=== PATIENT | female | born 1990 | race Hispanic/Latino ===

== ENCOUNTER → 2023-05-26 08:49 | Outpatient (CLI) | payer OTHER, SELFPAY ==
[2023-05-26 09:31] LABS: Add Manual Diff / Slide Review NO; Basophils Absolute Auto 0 /uL (0-100); Basophils Percent Auto 0.8 % (0-2); Eosinophils Absolute Auto 100 /uL (0-450); Eosinophils Percent Auto 3.7 % (2-4); Hematocrit 34.4 % (36-46); Hemoglobin 12.2 g/dL (12.0-16.0); Lymphocytes Absolute Auto 900 /uL (1100-4500); Lymphocytes Percent Auto 24.7 % (25-40); Mean Corpuscular HGB Conc 35.5 % (30-36); Mean Corpuscular Hemoglobin 30.9 PG (26-34); Mean Corpuscular Volume 87.1 fL (80-100); Monocytes Absolute Auto 300 /uL (0-900); Monocytes Percent Auto 8.4 % (3-14); Neutrophils Absolute Auto 2300 /uL (1500-7000); Neutrophils Percent Auto 62.4 % (50-75); Platelet Count 218 X10^3/uL (150-400); Red Blood Cell Count 3.95 X10^6/uL (4.0-5.2); Red Cell Distribution Width 12.3 % (11.6-14.8); White Blood Cell Count 3.7 X10^3/uL (4.5-11.0)
[2023-05-26 10:09] LABS: Alanine Aminotransferase 38 IU/L (<35); Albumin 4.6 g/dL (3.5-5.0); Albumin Globulin Ratio 1.3 (1.0-2.8); Alkaline Phosphatase 69 U/L (38-126); Aspartate Aminotransferase 36 IU/L (14-36); BUN Creatinine Ratio 24.6 (6-22); Bilirubin Total 2.3 mg/dL (0.2-1.3); Blood Urea Nitrogen 15 mg/dL (7-17); Calcium 9.3 mg/dL (8.4-10.2); Carbon Dioxide 27 mmol/L (22-32); Chloride 106 mmol/L (98-107); Cholesterol 181 mg/dL (140-199); Estimated Glomerular Filt Rate > 60 mL/min (>60); Globulin 3.5 g/dL (1.7-4.1); Glucose 89 mg/dL (70-100); HDL Cholesterol 65 mg/dL (40-60); HEMOLYSIS < 15 (0-50); LDL Cholesterol Calculated 105 mg/dL (<100); Potassium 4.3 mmol/L (3.4-5.1); Sodium 140 mmol/L (137-145); Total Protein 8.1 g/dL (6.3-8.2); Triglycerides 54 mg/dL (35-150)
[2023-05-26 16:50] LABS: HIV 1 & 2 Ab/Ag 4th Gen Combo NEGATIVE (NEGATIVE); Hep C Virus Ab w/Reflex Quant NEGATIVE s/c (NEGATIVE)
[2023-05-27 07:46] LABS: RPR Screen Non Reactive (Non Reactive)
== END ==
PROVIDERS: PCP Family Medicine; Referring Provider Family Medicine; Visit Provider Family Medicine
DX: D64.9 Anemia, unspecified (principal); R21 Rash and other nonspecific skin eruption; Z11.59 Encounter for screening for other viral diseases; Z13.220 Encounter for screening for lipoid disorders; Z11.3 Encounter for screening for infections with a predominantly sexual mode of transmission; Z11.4 Encounter for screening for human immunodeficiency virus [HIV]; N13.70 Vesicoureteral-reflux, unspecified
CPT/HCPCS: 36415; 80053; 80061; 85025; 86592; 86803; 87389

== ENCOUNTER → 2023-06-08 09:51 | Outpatient (CLI) | payer OTHER, SELFPAY ==
--- NOTE | 2023-06-08 09:52 | DI.US.S_ITS ---
PROCEDURE: US RENAL COMPLETE INDICATIONS: Eval for scarring s/p ureteral reimplantation TECHNIQUE: Real-time scanning was performed of the kidneys and bladder, with image documentation. COMPARISON: None. FINDINGS: Kidneys: Kidneys are normal in size. Right kidney measures < 9.0 cm long; left kidney measures 12.6 cm long. Mild right hydronephrosis is seen. No hydronephrosis seen on left. No renal stone seen. Renal cortical echotexture is normal. No hydronephrosis or nephrolithiasis. No suspicious solid mass lesions. Bladder: Pre-void bladder volume is 85 mL. Post-void residual is 0 mL. Pre-void images demonstrate no intraluminal masses or stones. On pre-void images, bilateral ureteral jets are noted with color Doppler interrogation. (Of note, ureteral jets may not be detectable in up to 25% of cases due to insufficient differences in specific gravity between ureteral and bladder urine). Miscellaneous: No free pelvic fluid. IMPRESSION: Mild right hydronephrosis Bilateral ureteral jets are present Dictated by: Alin Mandel M.D. on 06/08/2023 at 10:37 Approved by: Alin Mandel M.D. on 06/08/2023 at 11:06
== END ==
LOC: US 09:51
PROVIDERS: PCP Family Medicine; Referring Provider Family Medicine; Visit Provider Family Medicine
DX: N13.30 Unspecified hydronephrosis (principal); N13.70 Vesicoureteral-reflux, unspecified
CPT/HCPCS: 76770

== ENCOUNTER → 2023-06-16 14:52 | Outpatient (CLI) | payer OTHER, SELFPAY | PROVIDERS: PCP Family Medicine; Referring Provider Family Medicine; Visit Provider Family Medicine | DX: R00.2 Palpitations (principal) | CPT/HCPCS: 93246 ==

== ENCOUNTER → 2023-06-17 11:41 | Outpatient (CLI) | payer OTHER, SELFPAY ==
--- NOTE | 2023-06-17 11:44 | DI.RAD.S_ITS ---
PROCEDURE: XR KNEE RT 3V INDICATIONS: Right Knee Pain TECHNIQUE: 3 views of the knee were acquired. COMPARISON: None. FINDINGS: Bones: No fractures or dislocations. No suspicious bony lesions. Soft tissues: No joint effusion. No suspicious soft tissue calcifications. IMPRESSION: No acute right knee fracture or dislocation. No significant joint effusion. Dictated by: Nikko Rodgers M.D. on 06/17/2023 at 14:21 Approved by: Nikko Rodgers M.D. on 06/17/2023 at 14:24
== END ==
PROVIDERS: PCP Family Medicine; Referring Provider Family Medicine; Visit Provider Family Medicine
DX: M25.561 Pain in right knee (principal)
CPT/HCPCS: 73562

== ENCOUNTER 2024-05-09 11:55 | Emergency (ER) | payer OTHER, SELFPAY ==
[2024-05-09 12:02] VITALS: BP 108/68; PULSE 79; RESP 14; TEMP 36.8; O2SAT 99; BMI 21.9
--- NOTE | 2024-05-09 12:02 | EKG_ITS ---
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
--- NOTE | 2024-05-09 12:02 | DI.RAD.S_ITS ---
PROCEDURE: XR CHEST 1V INDICATIONS: chest pain TECHNIQUE: One view of the chest was acquired. COMPARISON: None. FINDINGS: Surgical changes and devices: None. Lungs and pleura: Lungs are clear. No pleural effusions or pneumothorax. Mediastinum: Mediastinal contours appear normal. Heart size is normal. Bones and chest wall: No suspicious bony lesions. Overlying soft tissues appear unremarkable. IMPRESSION: No acute cardiopulmonary abnormality is seen. Dictated by: Luca Ogden M.D. on 05/09/2024 at 12:47 Approved by: Luca Ogden M.D. on 05/09/2024 at 12:47
[2024-05-09 12:20] LABS: Add Manual Diff / Slide Review NO; Basophils Absolute Auto 0 /uL (0-100); Basophils Percent Auto 0.6 % (0-2); Eosinophils Absolute Auto 300 /uL (0-450); Eosinophils Percent Auto 4.1 % (2-4); Hematocrit 36.5 % (36-46); Hemoglobin 12.7 g/dL (12.0-16.0); Lymphocytes Absolute Auto 1100 /uL (1100-4500); Lymphocytes Percent Auto 14.4 % (25-40); Mean Corpuscular HGB Conc 34.8 % (30-36); Mean Corpuscular Volume 86.4 fL (80-100); Monocytes Absolute Auto 600 /uL (0-900); Monocytes Percent Auto 7.5 % (3-14); Neutrophils Absolute Auto 5700 /uL (1500-7000); Neutrophils Percent Auto 73.4 % (50-75); Platelet Count 335 X10^3/uL (150-400); Red Blood Cell Count 4.22 X10^6/uL (4.0-5.2); Red Cell Distribution Width 11.8 % (11.6-14.8); White Blood Cell Count 7.8 X10^3/uL (4.5-11.0)
[2024-05-09 12:22] LABS: INR 1.2 (0.9-1.3); Prothrombin Time 13.2 SECONDS (9.4-12.5)
[2024-05-09 12:24] LABS: PTT Partial Thromboplastin Tim 34 SECONDS (25.1-36.5)
[2024-05-09 12:26] LABS: Alanine Aminotransferase 26 IU/L (<35); Albumin Globulin Ratio 1.5 (1.0-2.8); Alkaline Phosphatase 62 U/L (38-126); Aspartate Aminotransferase 27 IU/L (14-36); BUN Creatinine Ratio 19.4 (6-22); Bilirubin Total 1.8 mg/dL (0.2-1.3); Blood Urea Nitrogen 14 mg/dL (7-17); Calcium 9.6 mg/dL (8.4-10.2); Carbon Dioxide 23 mmol/L (22-32); Chloride 106 mmol/L (98-107); Creatine Kinase 72 U/L (30-135); Estimated Glomerular Filt Rate > 60 mL/min (>60); Globulin 3.4 g/dL (1.7-4.1); Glucose 96 mg/dL (70-100); HEMOLYSIS < 15 (0-50); Lipase 118 U/L (23-300); Magnesium 1.9 mg/dL (1.6-2.3); Potassium 4.1 mmol/L (3.4-5.1); Sodium 139 mmol/L (137-145); Total Protein 8.4 g/dL (6.3-8.2)
[2024-05-09 12:38] LABS: NT-proBNP (BNP-Adult 18+) < 20 pg/mL (<125); Troponin I < 0.012 ng/mL (0.01-0.034)
[2024-05-09] MEDS: ASPIRIN 81 MG CHEW TAB 324 MG PO (13:59)
--- NOTE | 2024-05-09 14:10 | ED_ITS ---
HPI - Chest Pain <Seble Mondragon PA-C - Last Filed: 05/09/24 20:11> General Chief Complaint: Chest Pain Stated Complaint: frequent irregular heartbeat, pressure in chest Time Seen by Provider: 05/09/24 14:09 Mode of arrival: Ambulatory History of Present Illness HPI narrative: Ms. Jacobson is a pleasant 34-year-old female with a past medical history of vesicoureteric reflux, appendectomy, palpitations who presents to the emergency department for worsening palpitations associated with chest pain today. Patient reports that she experiences episode of chest pain associated with palpitations approximately 2 times a day for the last multiple months. Reports having a Holter monitor in the past that showed occasional ?extra beats? but was advised there was nothing of concern. When she woke up this morning she states that her palpitations and pain was constant which is not normal for her. States that she feels a palpitation approximately every 30 seconds currently, sometimes it feels like it is taking her breath away. She denies shortness of breath at rest, hemoptysis, hormone use, cough, abdominal pain, nausea, vomiting, diarrhea, dysuria, hematuria. Related Data Previous Rx's Medication Instructions Recorded norethindrone acetate 1 mg-ethinyl 1 tab PO DAILY #63 tabs 05/11/24 estradiol 20 mcg tablet (Loestrin) Allergies Allergy/AdvReac Type Severity Reaction Status Date / Time No Known Drug Allergies Allergy Verified 05/11/24 10:26 Review of Systems <Seble Mondragon PA-C - Last Filed: 05/09/24 20:11> Review of Systems ROS Unobtainable: All systems reviewed & are unremarkable except as noted in HPI and below Patient History <Seble Mondragon PA-C - Last Filed: 05/09/24 20:11> Medical History Skin rash (~2022) Dandruff (~2022) Acne Depression (~2020) Anxiety (~2020) Anemia Wears glasses (~2018) Recurrent sinusitis Ovarian cyst (~2022) Herpes (~2022) Endometriosis (~2022) VUR (vesicoureteric reflux) (~1992) Surgical History S/P ureteral reimplantation (~1992) Anesthesia History of section (~2014) History of appendectomy (~1993) Family History Father Hyperlipidemia Mother History of heart disease Hyperlipidemia Brother Hyperlipidemia Sister Mental health problem Grandfather Breast cancer Liver cancer Grandmother Diabetes mellitus History of heart disease Hyperlipidemia Stroke Blindness Grandmother Arthritis Hyperlipidemia Stroke Son VUR (vesicoureteric reflux) Social History Smoking Status: Never smoker Smoking Status: Never smoker Exam <Seble Mondragon PA-C - Last Filed: 05/09/24 20:11> Narrative Exam Narrative: GENERAL: 34 year old patient appears stated age. Well-developed patient, in no acute distress. HEAD: Atraumatic. Normocephalic. EYES: No scleral icterus. No injection or drainage. NECK: Trachea midline. Cervical ROM intact. CARDIOVASCULAR: Regular rate and rhythm. On certification technician, there appears to be occasional PVCs every 30 seconds to 1 minute. RESPIRATORY: ?Nonlabored respirations. ?Speaking in clear, full sentences. ?Clear to auscultation. Breath sounds equal bilaterally. No wheezes, rales, or rhonchi. ? GASTROINTESTINAL: Abdomen soft, non-tender, nondistended. EXTREMITIES: No edema or joint tenderness. BACK: Nontender without deformity or crepitance. No flank tenderness. NEURO: AOx3. ?Clear speech. ?Moves all 4 extremities appropriately. SKIN: No rash or erythema of visible areas Initial Vital Signs Initial Vital Signs: Vital Signs Temperature 98.3 F 05/09/24 12:02 Pulse Rate 79 05/09/24 12:02 Respiratory Rate 14 05/09/24 12:02 Blood Pressure 108/68 05/09/24 12:02 Pulse Oximetry 99 05/09/24 12:02 Oxygen Delivery Method Room Air 05/09/24 12:02 <Vinicius Baer MD - Last Filed: 05/11/24 12:43> Initial Vital Signs Initial Vital Signs: Vital Signs Temperature 98.3 F 05/09/24 12:02 Pulse Rate 79 05/09/24 12:02 Respiratory Rate 14 05/09/24 12:02 Blood Pressure 108/68 05/09/24 12:02 Pulse Oximetry 99 05/09/24 12:02 Oxygen Delivery Method Room Air 05/09/24 12:02 Scores <Seble Mondragon PA-C - Last Filed: 05/09/24 20:11> HEART Score Heart Score history: Slightly Suspicious Heart Score EKG: Normal Heart Score Age: < 45 years old Heart Score risk factors: No known risk factors Heart Score troponin: < or = to normal limit Heart Score Total: 0 PERC Score Age greater than or equal to 50 years: No Heart rate greater than or equal to 100 bpm: No Room Air O2 Sat less than 95%: No Unilateral leg swelling: No Recent trauma or surgery: No Hemoptysis: No Prior PE or DVT: No Hormone Use: No Total PERC Score: 0 <Vinicius Baer MD - Last Filed: 05/11/24 12:43> HEART Score Heart Score Total: 0 PERC Score Total PERC Score: 0 Course <Seble Mondragon PA-C - Last Filed: 05/09/24 20:11> Orders Ordered: Discontinued Medications Aspirin (Aspirin 81 Mg Chew Tab) 324 mg PO NOW ONE Stop: 05/09/24 12:03 Last Admin: 05/09/24 13:59 Dose: 324 mg Documented By: RENY Sodium Chloride (Normal Saline 0.9%) 1,000 mls @ 1,000 mls/hr IV BOLUS ONE Stop: 05/09/24 15:23 Last Infusion: 05/09/24 16:00 Dose: Infused Documented By: Admin: 05/09/24 14:41 Dose: 1,000 mls/hr Documented By: MICHELLE Vital Signs Vital signs: Vital Signs - 8 hr 05/09/24 15:00 05/09/24 15:30 05/09/24 16:00 Pulse Rate 78 75 67 Respiratory Rate 13 17 17 Blood Pressure 99/63 112/56 L 110/61 Pulse Oximetry 100 99 100 Oxygen Delivery Method Room Air Room Air 05/09/24 16:30 Pulse Rate 64 Respiratory Rate 15 Blood Pressure 98/65 Pulse Oximetry 100 Oxygen Delivery Method Room Air <Vinicius Baer MD - Last Filed: 05/11/24 12:43> Orders Ordered: Discontinued Medications Aspirin (Aspirin 81 Mg Chew Tab) 324 mg PO NOW ONE Stop: 05/09/24 12:03 Last Admin: 05/09/24 13:59 Dose: 324 mg Documented By: RENY Sodium Chloride (Normal Saline 0.9%) 1,000 mls @ 1,000 mls/hr IV BOLUS ONE Stop: 05/09/24 15:23 Last Infusion: 05/09/24 16:00 Dose: Infused Documented By: Admin: 05/09/24 14:41 Dose: 1,000 mls/hr Documented By: MICHELLE Vital Signs Vital signs: Vital Signs - 8 hr 05/09/24 15:00 05/09/24 15:30 05/09/24 16:00 Pulse Rate 78 75 67 Respiratory Rate 13 17 17 Blood Pressure 99/63 112/56 L 110/61 Pulse Oximetry 100 99 100 Oxygen Delivery Method Room Air Room Air 05/09/24 16:30 Pulse Rate 64 Respiratory Rate 15 Blood Pressure 98/65 Pulse Oximetry 100 Oxygen Delivery Method Room Air MDM - Chest Pain <Seble Daysi Mondragon PA-C - Last Filed: 05/09/24 20:11> Medical Records Data Attestation: I reviewed the patient's medical records. Lab Data 05/09/24 12:07 05/09/24 12:07 Labs: Lab Results 05/09/24 05/09/24 Range/Units 12:07 14:10 WBC 7.8 (4.5-11.0) X10^3/uL RBC 4.22 (4.0-5.2) X10^6/uL Hgb 12.7 (12.0-16.0) g/dL Hct 36.5 (36-46) % MCV 86.4 (80-100) fL MCH 30.0 (26-34) PG MCHC 34.8 (30-36) % RDW 11.8 (11.6-14.8) % Plt Count 335 (150-400) X10^3/uL Neut % (Auto) 73.4 (50-75) % Lymph % (Auto) 14.4 L (25-40) % Milam % (Auto) 7.5 (3-14) % Eos % (Auto) 4.1 H (2-4) % Baso % (Auto) 0.6 (0-2) % Neut # (Auto) 5700 (5999-2577) /uL Lymph # (Auto) 1100 (3632-1758) /uL Milam # (Auto) 600 (0-900) /uL Eos # (Auto) 300 (0-450) /uL Baso # (Auto) 0 (0-100) /uL PT 13.2 H (9.4-12.5) SECONDS INR 1.2 (0.9-1.3) APTT 34 (25.1-36.5) SECONDS Sodium 139 (137-145) mmol/L Potassium 4.1 (3.4-5.1) mmol/L Chloride 106 (98-107) mmol/L Carbon Dioxide 23 (22-32) mmol/L BUN 14 (7-17) mg/dL Creatinine 0.72 (0.52-1.04) mg/dL Estimated GFR > 60 (>60) mL/min BUN/Creatinine Ratio 19.4 (6-22) Glucose 96 (70-100) mg/dL Calcium 9.6 (8.4-10.2) mg/dL Magnesium 1.9 (1.6-2.3) mg/dL Total Bilirubin 1.8 H (0.2-1.3) mg/dL AST 27 (14-36) IU/L ALT 26 (<35) IU/L Alkaline Phosphatase 62 (38-126) U/L Total Creatine Kinase 72 (30-135) U/L Troponin I < 0.012 < 0.012 (0.01-0.034) ng/mL NT-Pro-B Natriuret Pep < 20 (<125) pg/mL Total Protein 8.4 H (6.3-8.2) g/dL Albumin 5.0 (3.5-5.0) g/dL Globulin 3.4 (1.7-4.1) g/dL Albumin/Globulin Ratio 1.5 (1.0-2.8) Lipase 118 (23-300) U/L TSH 1.04 (0.47-4.68) uIU/mL Imaging Data Chest x-ray: Radiologist's Impression: PROCEDURE: XR CHEST 1V INDICATIONS: chest pain TECHNIQUE: One view of the chest was acquired. COMPARISON: None. FINDINGS: Surgical changes and devices: None. Lungs and pleura: Lungs are clear. No pleural effusions or pneumothorax. Mediastinum: Mediastinal contours appear normal. Heart size is normal. Bones and chest wall: No suspicious bony lesions. Overlying soft tissues appear unremarkable. IMPRESSION: No acute cardiopulmonary abnormality is seen. ECG Data Interpretation: ECG reveals sinus rhythm, rate of 85 beats per minute, QTC of 449, occasional premature ventricular complexes. [facility] Narrative Medical decision making narrative: 34-year-old female with a past medical history of vesicoureteric reflux, appendectomy, palpitations who presents to the emergency department for worsening palpitations associated with chest pain today. Differential diagnosis includes but is not limited to arrhythmia, ACS/[place], thyroid disease, dehydration, etc. On exam patient is in no acute distress, nontoxic appearing, vital signs within normal limits, lungs clear to auscultation, heart rate regular rate and rhythm however occasional extra beat associated with sensation of palpitation. Cardiac workup initiated in triage reveals negative chest x-ray, normal WBC count 7.8 normal potassium and magnesium, normal renal function negative troponin and BNP. We will add on TSH, repeat troponin, treat fluids, repeat EKG. Repeat EKG reveals normal rate of 81, sinus rhythm with occasional premature ventricular complex. Reviewed PCP note with Dr. Berrios from 07/21/2023 which revealed Zio monitor report occasional PACs and PVCs however at that time she was asymptomatic. TSH normal at 1.04. Patient feeling well, still experiencing occasional palpitations but no SOB or CP. Recommend that she follows up with PCP in addition to Cardiology for Holter monitor and echocardiogram. We discussed strict ED return precautions and monitoring of symptoms. Patient verbalized understanding all information is agreeable to plan. She is stable for discharge home. <Vinicius Baer MD - Last Filed: 05/11/24 12:43> Lab Data Labs: Lab Results 05/09/24 05/09/24 Range/Units 12:07 14:10 WBC 7.8 (4.5-11.0) X10^3/uL RBC 4.22 (4.0-5.2) X10^6/uL Hgb 12.7 (12.0-16.0) g/dL Hct 36.5 (36-46) % MCV 86.4 (80-100) fL MCH 30.0 (26-34) PG MCHC 34.8 (30-36) % RDW 11.8 (11.6-14.8) % Plt Count 335 (150-400) X10^3/uL Neut % (Auto) 73.4 (50-75) % Lymph % (Auto) 14.4 L (25-40) % Milam % (Auto) 7.5 (3-14) % Eos % (Auto) 4.1 H (2-4) % Baso % (Auto) 0.6 (0-2) % Neut # (Auto) 5700 (5224-0213) /uL Lymph # (Auto) 1100 (9252-0098) /uL Milam # (Auto) 600 (0-900) /uL Eos # (Auto) 300 (0-450) /uL Baso # (Auto) 0 (0-100) /uL PT 13.2 H (9.4-12.5) SECONDS INR 1.2 (0.9-1.3) APTT 34 (25.1-36.5) SECONDS Sodium 139 (137-145) mmol/L Potassium 4.1 (3.4-5.1) mmol/L Chloride 106 (98-107) mmol/L Carbon Dioxide 23 (22-32) mmol/L BUN 14 (7-17) mg/dL Creatinine 0.72 (0.52-1.04) mg/dL Estimated GFR > 60 (>60) mL/min BUN/Creatinine Ratio 19.4 (6-22) Glucose 96 (70-100) mg/dL Calcium 9.6 (8.4-10.2) mg/dL Magnesium 1.9 (1.6-2.3) mg/dL Total Bilirubin 1.8 H (0.2-1.3) mg/dL AST 27 (14-36) IU/L ALT 26 (<35) IU/L Alkaline Phosphatase 62 (38-126) U/L Total Creatine Kinase 72 (30-135) U/L Troponin I < 0.012 < 0.012 (0.01-0.034) ng/mL NT-Pro-B Natriuret Pep < 20 (<125) pg/mL Total Protein 8.4 H (6.3-8.2) g/dL Albumin 5.0 (3.5-5.0) g/dL Globulin 3.4 (1.7-4.1) g/dL Albumin/Globulin Ratio 1.5 (1.0-2.8) Lipase 118 (23-300) U/L TSH 1.04 (0.47-4.68) uIU/mL Discharge Plan Departure Patient Disposition: Home Clinical Impression: Heart palpitations, Premature ventricular complex Instructions: DI for Atypical Chest Pain Activity Restrictions/Additional Instructions: Today, we completed a work up for palpitations and chest pain. Sometimes, we do not always find the cause for your symptoms in one ER visit. The findings on your exam today and on your blood work and/or imaging is reassuring. At this time, it is not 100% certain what is causing your symptoms, but we feel you can be discharged from the emergency department. It is possible this may worsen or you may get better. Please, if you get worse or your symptoms change, return to the emergency department. Otherwise, please follow up with your primary care doctor in 1-2 days. Your EKG today revealed occasional premature ventricular complexes which are extra heartbeats that are associated with your symptom of palpitations. We recommend they follow up with your primary care doctor and a senior regulatory affairs specialist for further evaluation with Holter monitor and echocardiogram. (If you do not have a PCP you can call [phone]. ?to schedule an appointment with an [facility] Primary Care Provider) IF YOU DEVELOP ANY NEW OR WORSENING SYMPTOMS, RETURN TO THE ER! Please read the attached instructions, they highlight more specific treatments and interventions for you at home. Thank you for letting me participate in your care, Seble Mondragon PA-C Prescriptions: No Action norethindrone ac-eth estradiol [Loestrin 04/09 ()] 1-20 mg-mcg tablet 1 tab PO DAILY Qty: 63 6RF Referrals: Wilver Berrios MD [Primary Care Provider] - Stand Alone Forms: Patient Portal/API/Survey ED Sign-out <Vinicius Baer MD - Last Filed: 05/11/24 12:43> [facility]: I was immediately available in the department for consultation. ?This documentation has been reviewed and I agree with assessment and plan. Supervised by Vinicius Baer MD
--- NOTE | 2024-05-09 14:24 | EKG_ITS ---
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
[2024-05-09] MEDS: SODIUM CHLORIDE 0.9% 1,000 ML 1000 ML IV (14:41)
[2024-05-09 14:49] LABS: Troponin I < 0.012 ng/mL (0.01-0.034)
[2024-05-09 15:00] VITALS: BP 99/63; PULSE 78; RESP 13; O2SAT 100
[2024-05-09 15:08] LABS: Thyroid Stimulating Hormone 1.04 uIU/mL (0.47-4.68)
[2024-05-09 15:30] VITALS: BP 112/56; PULSE 75; RESP 17; O2SAT 99
[2024-05-09 16:00] VITALS: BP 110/61; PULSE 67; RESP 17; O2SAT 100
[2024-05-09 16:30] VITALS: BP 98/65; PULSE 64; RESP 15; O2SAT 100
== END 2024-05-09 16:41 | disposition home or self-care (01) ==
PROVIDERS: Emergency Medicine; Emergency Provider Physician Assistant; PCP Family Medicine
DX: R00.2 Palpitations (principal); I49.3 Ventricular premature depolarization; R07.9 Chest pain, unspecified
CPT/HCPCS: 36415; 71045; 80053; 82550; 83690; 83735; 83880; 84443; 84484; 85025; 85610; 85730; 93005; 96360; 99284

== ENCOUNTER → 2024-05-29 09:40 | Outpatient (CLI) | payer OTHER, SELFPAY ==
--- NOTE | 2024-05-29 09:42 | DI.RAD.S_ITS ---
PROCEDURE: XR KNEE LT 3V INDICATIONS: Left knee strain TECHNIQUE: 3 views of the knee were acquired. COMPARISON: [facility], CR, XR KNEE RT 3V, 06/17/2023, 11:54. FINDINGS: Bones: No fractures or dislocations. No suspicious bony lesions. Soft tissues: No joint effusion. No suspicious soft tissue calcifications. IMPRESSION: No acute bony abnormality or significant effusion. Dictated by: Tuan Gutiérrez M.D. on 05/30/2024 at 2:40 Approved by: Tuan Gutiérrez M.D. on 05/30/2024 at 2:41
== END ==
PROVIDERS: PCP Family Medicine; Referring Provider Nurse Practitioner Family; Visit Provider Nurse Practitioner Family
DX: S86.912A Strain of unspecified muscle(s) and tendon(s) at lower leg level, left leg, initial encounter (principal); X58.XXXA Exposure to other specified factors, initial encounter
CPT/HCPCS: 73562

== ENCOUNTER → 2024-06-20 13:23 | Outpatient (CLI) | payer OTHER, SELFPAY ==
--- NOTE | 2024-06-20 13:24 | DI.ECHO.S_ITS ---
[facility] : : [address] : : [place] : : [id number] : : Phone: [phone] Echocardiogram Report + + :Name: ALICIA OTERO Study Date: 06/20/2024 Height: 62 in : :Hospital ReadingLocation: Weight: 117 lb : : Gender: Female BSA: 1.5 m2 : :: 1990 Age: 34 yrs BP: 106/70 mmHg: :Reason For Study: PALPITATIONS : :Ordering Physician: ANTONELLA, : :BHANU Tovar Performed By: Ericka Felix : :Referring: BHANU BERMAN : + + Interpretation Summary The left ventricle is normal in size and wall thickness. The left ventricular ejection fraction is normal. The ejection fraction is estimated to be 55-60%. The right ventricle is normal in size and function. No significant valvular pathology seen The IVC is of normal diameter and collapses greater than 50% with a sniff. This suggests a low right atrial pressure of 3 mm Hg. Procedure: A two-dimensional transthoracic echocardiogram with color flow and Doppler was performed. The study quality was technically good. There is no prior echocardiogram noted for this patient. The patient was in sinus rhythm with heart rates between 60-71 bpm during the exam. Left Ventricle: The left ventricle is normal in size and wall thickness. There is no thrombus. The ejection fraction is estimated to be 55-60%. The left ventricular ejection fraction is normal. There are no focal wall motion abnormalities. Diastolic parameters suggest probable normal left ventricular diastolic function and normal filling pressures. Right Ventricle: The right ventricle is normal in size and function. Atria: The left atrial size is normal. Right atrial size is normal. There is no Doppler evidence for an interatrial shunt. Mitral Valve: The mitral valve is normal. There is trace mitral regurgitation. Aortic Valve: The aortic valve is trileaflet. The aortic valve opens well. There is no aortic valve stenosis. No aortic regurgitation is present. Tricuspid Valve: The tricuspid valve leaflets are thin and pliable. There is trace tricuspid regurgitation. Pulmonary artery pressures cannot be estimated because of the lack of a measurable TR jet velocity. Pulmonic Valve: The pulmonic valve leaflets are thin and pliable; valve motion is normal. There is trace pulmonic regurgitation. Great Vessels: The aortic root is normal size. The dimensions of the ascending aorta are normal. The IVC is of normal diameter and collapses greater than 50% with a sniff. This suggests a low right atrial pressure of 3 mm Hg. Pericardium/ Pleura There is no pericardial effusion. There is no pleural effusion. MMode/2D Measurements & Calculations LVIDd: 4.8 cm LVOT diam: 1.9 cm LVIDs: 3.0 cm Ao root diam: 2.2 cm FS: 38.1 % asc Aorta Diam: 2.2 cm IVSd: 0.50 cm Ao Arch Diam (Prox Trans): 2.4 cm LVPWd: 0.57 cm LV negro. diameter/BSA (cm/m^2): 3.2 LV sys. diameter/BSA (cm/m^2): 2.0 LA A2 area: 12.4 cm2 RA long axis: 4.3 cm LA A4 area: 11.4 cm2 RA area: 11.6 cm2 LA length (vol): 4.3 cm RA vol: 26.5 ml LA vol: 28.3 ml RA : 17.4 ml/m2 LA vol index: 18.6 ml/m2 IVC diam: 1.5 cm RVD1 (basal): 3.0 cm RVD2 (mid): 2.6 cm TAPSE: 1.7 cm Doppler Measurements & Calculations Ao V2 max: 153.8 cm/sec LVOT Max Jose Luis: 106.2 cm/sec Ao V2 mean: 105.1 cm/sec LV V1 max P.5 mmHg Ao max P.5 mmHg LV V1 VTI: 21.8 cm Ao mean P.0 mmHg JESUS(I,D): 2.0 cm2 Ao V2 VTI: 29.1 cm JESUS(V,D): 1.9 cm2 sev ratio: 0.75 JESUS indexed to BSA (cm^2/m^2): 1.3 MV E max jose luis: 81.6 cm/sec PA V2 max: 99.3 cm/sec MV A max jose luis: 38.5 cm/sec PA V2 mean: 67.1 cm/sec MV E/A: 2.1 PA mean P.1 mmHg Med Peak E' Jose Luis: 13.3 cm/sec PA pr(Accel): 9.6 mmHg E/E' med: 6.1 Lat Peak E' Jose Luis: 19.4 cm/sec E/E' lat: 4.2 E/e' average: 5.2 MV dec time: 0.16 sec SV(LVOT): 59.0 ml Reading Physician:04:25 PM
== END ==
PROVIDERS: Family Provider Family Medicine; PCP Family Medicine; Referring Provider Family Medicine; Visit Provider Family Medicine
DX: I49.3 Ventricular premature depolarization (principal); R00.2 Palpitations
CPT/HCPCS: 93306

== ENCOUNTER 2024-08-25 09:37 | Emergency (ER) | payer OTHER, SELFPAY ==
[2024-08-25 09:40] VITALS: BP 126/65; PULSE 90; RESP 16; TEMP 36.9; O2SAT 98; BMI 18.8
--- NOTE | 2024-08-25 10:58 | DI.RAD.S_ITS ---
PROCEDURE: XR CHEST 1V INDICATIONS: syncope TECHNIQUE: One view of the chest was acquired. COMPARISON: [facility], CR, XR CHEST 1V, 05/09/2024, 12:15. FINDINGS: Surgical changes and devices: None. Lungs and pleura: Lungs are clear. No pleural effusions or pneumothorax. Mediastinum: Mediastinal contours appear normal. Heart size is normal. Bones and chest wall: No suspicious bony lesions. Overlying soft tissues appear unremarkable. IMPRESSION: No acute cardiopulmonary abnormality is seen. Approved by: Ihsan Min M.D. on 08/25/2024 at 10:20
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
--- NOTE | 2024-08-25 11:06 | EKG_ITS ---
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
[2024-08-25 11:13] LABS: Add Manual Diff / Slide Review NO; Basophils Absolute Auto 0 /uL (0-100); Eosinophils Absolute Auto 100 /uL (0-450); Eosinophils Percent Auto 2.3 % (2-4); Hematocrit 36.4 % (36-46); Hemoglobin 12.6 g/dL (12.0-16.0); Lymphocytes Absolute Auto 900 /uL (1100-4500); Lymphocytes Percent Auto 21.8 % (25-40); Mean Corpuscular HGB Conc 34.6 % (30-36); Mean Corpuscular Hemoglobin 30.8 PG (26-34); Mean Corpuscular Volume 89.1 fL (80-100); Monocytes Absolute Auto 300 /uL (0-900); Monocytes Percent Auto 8.1 % (3-14); Neutrophils Absolute Auto 2800 /uL (1500-7000); Neutrophils Percent Auto 66.8 % (50-75); Platelet Count 219 X10^3/uL (150-400); Red Blood Cell Count 4.09 X10^6/uL (4.0-5.2); Red Cell Distribution Width 12.5 % (11.6-14.8); White Blood Cell Count 4.1 X10^3/uL (4.5-11.0)
[2024-08-25 11:22] LABS: INR 1.1 (0.9-1.3); Prothrombin Time 12.8 SECONDS (9.4-12.5)
[2024-08-25 11:25] LABS: PTT Partial Thromboplastin Tim 36 SECONDS (25.1-36.5)
[2024-08-25 11:26] LABS: Alanine Aminotransferase 38 IU/L (<35); Albumin 4.7 g/dL (3.5-5.0); Albumin Globulin Ratio 1.5 (1.0-2.8); Alkaline Phosphatase 65 U/L (38-126); Aspartate Aminotransferase 38 IU/L (14-36); Bilirubin Total 1.9 mg/dL (0.2-1.3); Blood Urea Nitrogen 15 mg/dL (7-17); Calcium 9.3 mg/dL (8.4-10.2); Carbon Dioxide 27 mmol/L (22-32); Chloride 103 mmol/L (98-107); Creatine Kinase 61 U/L (30-135); Estimated Glomerular Filt Rate > 60 mL/min (>60); Globulin 3.1 g/dL (1.7-4.1); Glucose 125 mg/dL (70-99); HEMOLYSIS < 15 (0-50); Lipase 67 U/L (23-300); Magnesium 1.6 mg/dL (1.6-2.3); Potassium 3.9 mmol/L (3.4-5.1); Sodium 137 mmol/L (137-145); Total Protein 7.8 g/dL (6.3-8.2)
[2024-08-25 11:38] LABS: NT-proBNP (BNP-Adult 18+) < 20 pg/mL (<125); Troponin I < 0.012 ng/mL (0.01-0.034)
--- NOTE | 2024-08-25 11:54 | DI.CT.S_ITS ---
PROCEDURE: CT HEAD/BRAIN WO CON INDICATIONS: syncope during intercourse w/ neck pressure; L arm tingling TECHNIQUE: Noncontrast 4.5 mm thick angled axial sections acquired from the foramen magnum to the vertex, with coronal and sagittal reformats. For radiation dose reduction, the following was used: automated exposure control, adjustment of mA and/or kV according to patient size. COMPARISON: None. FINDINGS: Image quality: Diagnostic. CSF spaces: Basal cisterns are patent. No extra-axial fluid collections. Ventricles are normal in size and shape. Brain: No midline shift. No intracranial mass effect or hemorrhage. Gordon- white matter interface is normal. Skull and face: Calvarium and visualized facial bones are intact, without suspicious lesions. Sinuses: Visualized sinuses and mastoids are clear. IMPRESSION: No acute intracranial pathology. Approved by: Ihsan Min M.D. on 08/25/2024 at 12:21
--- NOTE | 2024-08-25 11:54 | DI.CT.S_ITS ---
PROCEDURE: CT ANGIO HEAD AND NECK INDICATIONS: syncope during intercourse w/ neck pressure; L arm tingling TECHNIQUE: After the administration of intravenous contrast, 1 mm thick sections acquired from the aortic arch through the [place]. MIP reformats of the arterial vasculature were utilized. For radiation dose reduction, the following was used: automated exposure control, adjustment of mA and/or kV according to patient size. COMPARISON: None. FINDINGS: Image quality: Diagnostic. Cerebral CT Angiogram: Internal carotid arteries: No acute findings. Intracranial ICA are patent with no significant stenosis. No occlusion. No aneurysm. Anterior cerebral arteries: Unremarkable. No significant stenosis. No occlusion. No aneurysm. Middle cerebral arteries: Unremarkable. No significant stenosis. No occlusion. No aneurysm. Posterior cerebral arteries: Unremarkable. No significant stenosis. No occlusion. No aneurysm. Basilar artery: Unremarkable. No significant stenosis. No occlusion. No aneurysm. Vertebral arteries: Unremarkable as visualized. Dural venous sinuses: Unremarkable given phase of enhancement. Other: Arterial phase appearance of the brain parenchyma is unremarkable. Neck CT Angiogram: Internal carotid arteries: Unremarkable. No significant stenosis. No dissection or occlusion. Common carotid arteries: Unremarkable. No significant stenosis. No dissection or occlusion. External carotid arteries: Unremarkable. No occlusion. Vertebral arteries: Unremarkable. No significant stenosis. No dissection or occlusion. Aortic Arch and Mediastinum: Partially visualized aortic arch unremarkable without evidence of aneurysm. Origins of the great vessels unremarkable. Other: Arterial phase soft tissues of the neck and chest are unremarkable. IMPRESSION: No significant intracranial arterial abnormality is seen. No significant abnormality is seen within the arteries of the neck. Approved by: Ihsan Min M.D. on 08/25/2024 at 12:31
[2024-08-25] MEDS: methylPREDNISolone 125 MG/2 ML VIAL IV (12:48)
[2024-08-25] MEDS: FAMOTIDINE 20 MG/2 ML VIAL 40 MG IV (12:48)
[2024-08-25] MEDS: diphenhydrAMINE 50 MG/ML VIAL 25 MG IV (12:49)
--- NOTE | 2024-08-25 12:59 | PC.NURSE ---
Patient received contrast media with CT and states that she has never had it before. Upon returning patient had no complaints. Patient then used call light to express concern of hive on face. Patient has 2 prominent hives and this RN immediately informed Johanny Mondragon who placed order and this RN administered medications.
[2024-08-25 13:55] VITALS: BP 128/67; PULSE 82; RESP 18; TEMP 36.6; O2SAT 99
== END 2024-08-25 13:57 | disposition home or self-care (01) ==
PROVIDERS: Emergency Provider Physician Assistant; Family Provider Family Medicine; PCP Family Medicine
DX: R55 Syncope and collapse (principal); L50.9 Urticaria, unspecified; R20.2 Paresthesia of skin
CPT/HCPCS: 36415; 70450; 70496; 70498; 71045; 80053; 81003; 81025; 82550; 83690; 83735; 83880; 84484; 85025; 85610; 85730; 93005; 96374; 96375; 99284; J1200; J2919; Q9967